=== PATIENT | female | born 1980 | race Caucasian/White ===

== ENCOUNTER 2024-11-08 10:59 | Emergency (ER) | payer OTHER, SELFPAY ==
[2024-11-08 11:06] VITALS: BP 173/84; PULSE 95; TEMP 36.5; O2SAT 96; BMI 50.6
--- NOTE | 2024-11-08 11:20 | ED_ITS ---
HPI - Nausea/Vomiting/Diarrhea General Chief complaint: Nausea/Vomiting/Diarrhea Stated complaint: NAUSEA/VOMITING Time Seen by Provider: 11/08/24 11:00 Source: patient and family Mode of arrival: walk-in Limitations: no limitations History of Present Illness HPI Narrative: 44-year-old female presents for nausea vomiting and diarrhea which started at 10:00 last night. No hematemesis or blood in her stool. No known ill contacts. She states that whenever she drank something this morning she vomited so she came in here. She is not complaining of abdominal pain and she has not had a fever. Related Data Home Medications ?Medication ?Instructions ?Recorded ?Confirmed control PO DAILY 11/08/24 Previous Rx's ?Medication ?Instructions ?Recorded ondansetron 4 mg disintegrating 4 mg PO Q6H PRN nausea and 11/08/24 tablet vomiting #20 tabs Allergies Allergy/AdvReac Type Severity Reaction Status Date / Time Penicillins AdvReac Mild Rash Verified 11/08/24 11:05 Review of Systems ROS Narrative A ten point review of systems is negative except as noted above. PFSH PFSH Social History Little interest or pleasure in doing things: not at all Feeling down, depressed, or hopeless: not at all Exam Narrative Exam Narrative: Nurses note and vital signs reviewed and patient is not hypoxic. General: The patient appears in no apparent distress. Patient is resting comfortably on cart. Skin: Warm, dry, no pallor noted. There is no rash noted. Head: Normocephalic, atraumatic Eye: Normal conjunctiva, no drainage Ears, Nose, Mouth, and Throat: oral mucosa is moist. Nares patent. Cardiovascular: Regular Rate and Rhythm Respiratory: Patient is in no distress, no accessory muscle use, lungs are clear to auscultation, no wheezing, rales or rhonchi Back: non-tender GI: Soft and nontender Musculoskeletal: The patient has no evidence of calf tenderness, symmetrical pulses noted bilaterally Neurological: A&O, normal speech Psychiatric: Cooperative Constitutional Vital Signs, click to edit/add: Last Vital Signs Temp 97.7 F 11/08/24 11:06 Pulse 95 H 11/08/24 11:06 Resp 18 11/08/24 11:06 BP 173/84 H 11/08/24 11:06 Pulse Ox 96 11/08/24 11:06 O2 Del Method Room Air 11/08/24 11:06 Course Vital Signs Vital signs: Vital Signs Temperature 97.7 F 11/08/24 11:06 Pulse Rate 95 H 11/08/24 11:06 Respiratory Rate 18 11/08/24 11:06 Blood Pressure 173/84 H 11/08/24 11:06 Pulse Oximetry 96 11/08/24 11:06 Oxygen Delivery Method Room Air 11/08/24 11:06 Temperature 97.7 F 11/08/24 11:06 Pulse Rate 95 H 11/08/24 11:06 Respiratory Rate 18 11/08/24 11:06 Blood Pressure 173/84 H 11/08/24 11:06 Pulse Oximetry 96 11/08/24 11:06 Oxygen Delivery Method Room Air 11/08/24 11:06 MDM - Nausea/Vomiting/Diarrhea MDM Narrative Medical decision making narrative: The patient is feeling proved after IV fluids and IV Zofran. She is able to be discharged home with a prescription for Zofran. Blood work is nonspecific. My clinical impression is that she has viral gastroenteritis. Treatment diagnosis and follow-up were discussed with the patient. Differential Diagnosis Differential diagnosis: Likely food poisoning, gastroenteritis and dehydration Lab Data Attestation: I reviewed the patient's lab results. Labs: Lab Results 11/08/24 Range/Units 11:15 WBC 11.6 H (4.0-11.0) 10^3/uL RBC 4.48 (4.20-5.40) 10^6/uL Hgb 13.6 (12.0-16.0) g/dL Hct 41.5 (36.0-48.0) % MCV 92.6 (81.0-99.0) fL MCH 30.4 (26.7-34.0) pg MCHC 32.8 (29.9-35.2) g/dL RDW 12.8 (11.0-15.0) % Plt Count 262 (150-450) 10^3/uL MPV 10.2 (9.5-13.5) fL Seg Neuts % (Manual) 88.0 H (43.0-75.0) Lymphocytes % (Manual) 4.0 L (20.5-60.0) % Monocytes % (Manual) 6.0 (1.7-12.0) % Eosinophils % (Manual) 2.0 (0.9-7.0) % Basophils % (Manual) 0.0 L (0.2-2.0) % Neutrophils # (Manual) 10.20 H (1.4-6.5) 10^3/uL Lymphocytes # (Manual) 0.46 L (1.20-3.80) 10^3/uL Monocytes # (Manual) 0.69 (0.30-0.80) 10^3/uL Eosinophils # (Manual) 0.23 (0.00-0.70) 10^3/uL Basophils # (Manual) 0.00 (0.00-0.10) 10^3/uL Sodium 142 (136-145) mmol/L Potassium 3.9 (3.5-5.1) mmol/L Chloride 103 (98-107) mmol/L Carbon Dioxide 26.0 (21.0-32.0) mmol/L Anion Gap 16.9 BUN 15.0 (7.0-18.0) mg/dL Creatinine 0.84 (0.55-1.02) mg/dL Est GFR ( Amer) >60 (>=60 mL/min/1.73m^2) Est GFR (Non-Af Amer) >60 (>=60 mL/min/1.73m^2) BUN/Creatinine Ratio 17.9 Glucose 137 H (74-106) mg/dL Calcium 9.7 (8.5-10.1) mg/dL Discharge Plan Discharge Chief Complaint: Nausea/Vomiting/Diarrhea Clinical Impression: Nausea & vomiting Patient Disposition: Home, Self-Care Time of Disposition Decision: 12:50 Condition: Good Mode of Transportation: Private Vehicle Prescriptions / Home Meds: New ondansetron 4 mg tablet,disintegrating 4 mg PO Q6H PRN (Reason: nausea and vomiting) Qty: 20 0RF No Action control PO DAILY Print Language: Turkmen Instructions: Acute Nausea and Vomiting (ED) Referrals: Shilea Louise [employer]PERATIONS MANAGER [Primary Care Provider] - 1 week
[2024-11-08] MEDS: ONDANSETRON PF 4 MG/2 ML VIAL IV (11:25)
[2024-11-08] MEDS: 0.9 % SODIUM CHLORIDE 1,000 ML 1000 ML IV (11:25)
[2024-11-08 11:32] LABS: Hematocrit 41.5 % (36.0-48.0); Hemoglobin 13.6 g/dL (12.0-16.0); Mean Corpuscular HGB Conc 32.8 g/dL (29.9-35.2); Mean Corpuscular Hemoglobin 30.4 pg (26.7-34.0); Mean Corpuscular Volume 92.6 fL (81.0-99.0); Mean Platelet Volume 10.2 fL (9.5-13.5); Platelet Count 262 10^3/uL (150-450); Red Blood Count 4.48 10^6/uL (4.20-5.40); Red Cell Distribution Width 12.8 % (11.0-15.0); White Blood Count 11.6 10^3/uL (4.0-11.0)
[2024-11-08 11:51] LABS: Anion Gap 16.9; BUN Creatinine Ratio 17.9; Calcium 9.7 mg/dL (8.5-10.1); Chloride 103 mmol/L (98-107); Estimated GFR (African America >60 (>=60 mL/min/1.73m^2); Estimated GFR (Non-African Ame >60 (>=60 mL/min/1.73m^2); Glucose 137 mg/dL (74-106); Potassium 3.9 mmol/L (3.5-5.1); Sodium 142 mmol/L (136-145)
[2024-11-08 12:06] LABS: Eosinophils Absolute Manual 0.23 10^3/uL (0.00-0.70); Lymphocytes Absolute Manual 0.46 10^3/uL (1.20-3.80); Monocytes Absolute Manual 0.69 10^3/uL (0.30-0.80)
== END 2024-11-08 13:10 | disposition home or self-care (01) ==
PROVIDERS: Emergency Provider Emergency Medicine; PCP Nurse Practitioner
DX: R11.2 Nausea with vomiting, unspecified (principal)
CPT/HCPCS: 36415; 80048; 85007; 85027; 96361; 96374; 99284; J2405